=== PATIENT | female | born 1950 | race Two or more races ===

== ENCOUNTER 2022-04-04 08:35 | Emergency (ER) | payer MEDICAID ==
[~2022-04-04] VITALS: Ht 162.6 cm; Wt 75.5 kg
[2022-04-04] MEDS ORDERED: RINGERS SOLUTION,LACTATED 500 ML IV ONE (10:00)
[2022-04-04 10:20] LABS: BASOPHILS % (AUTO) 0.3 % (0.0-2.0); EOSINOPHILS % (AUTO) 0.4 % (1.0-6.0); HEMATOCRIT 43.9 % (36-46); HEMOGLOBIN 14.9 g/dL (12.0-16.0); LYMPHOCYTES # (AUTO) 0.9 K/uL (1.0-4.8); LYMPHOCYTES % (AUTO) 16.4 % (22.0-44.0); MEAN CORPUSCULAR HEMOGLOBIN 30.5 pg (26.0-34.0); MEAN CORPUSCULAR VOLUME 90 fL (80-100); MONOCYTES # (AUTO) 0.5 K/uL (0.1-1.0); MONOCYTES % (AUTO) 8.2 % (2.0-9.0); NEUTROPHILS # (AUTO) 4.3 K/uL (1.8-7.7); NEUTROPHILS % (AUTO) 74.7 % (40.0-70.0); PLATELET COUNT (AUTO) 212 K/uL (150-450); RED CELL DISTRIBUTION WIDTH 13.4 % (11.5-14.5)
[2022-04-04 10:27] LABS: ANION GAP 8 mmol/L (8-16); CALCIUM, TOTAL 10.4 mg/dL (8.8-10.5); CARBON DIOXIDE 26 mmol/L (22-29); CHLORIDE 106 mmol/L (98-107); CREATININE 0.61 mg/dL (0.60-1.30); GLOMERULAR FILTR. RATE CALC > 60 mL/min (>60); GLUCOSE,RANDOM 100 mg/dL (70-110); POTASSIUM 3.5 mmol/L (3.5-5.1); SODIUM SERUM 140 mmol/L (136-145); UREA NITROGEN, BLOOD 10 mg/dL (7-18)
[2022-04-04] MEDS ORDERED: HYDROGEN PEROXIDE 118 ML SOLUTION TP ONE (10:45)
[2022-04-04] MEDS ORDERED: ACETAMINOPHEN 500 MG TABLET PO ONE (13:30)
[2022-04-04] MEDS ORDERED: CIPOTIC AS (13:40)
[2022-04-04] MEDS ORDERED: AMOX1TAB16 PO (13:40)
[2022-04-04 13:45] VITALS: BP 143/82
== END 2022-04-04 14:50 | disposition home or self-care (01) ==
LOC: EMS 08:35
DX: H61.22 Impacted cerumen, left ear (principal); H92.02 Otalgia, left ear; R42 Dizziness and giddiness
CPT/HCPCS: 36415; 69209; 80048; 85025; 93005; 99284; J7120